=== PATIENT | male | born 2000 | race Caucasian/White ===

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

== ENCOUNTER → 2021-05-11 13:20 | Outpatient (CLI) | payer BC, OTHER, SELFPAY | PROVIDERS: PCP Family Medicine; Visit Provider Family Medicine | DX: R40.0 Somnolence (principal); G47.30 Sleep apnea, unspecified | CPT/HCPCS: G0399 ==

== ENCOUNTER 2023-10-01 14:25 | Emergency (ER) | payer BC, OTHER, SELFPAY ==
[2023-10-01 14:50] VITALS: BP 160/98; PULSE 99; RESP 18; TEMP 36.9; O2SAT 100; BMI 39.6
--- NOTE | 2023-10-01 15:21 | ED_ITS ---
Discharge Plan Disposition Patient Disposition: Home, Self-Care Condition: Good Prescriptions Prescriptions: New albuterol sulfate [Proventil HFA] 90 mcg/actuation HFA aerosol inhaler 1 - 2 puff inhalation Q6H PRN (Reason: shortness of breath or wheezing) Qty: 8.5 0RF No Action metoprolol tartrate 25 mg tablet 25 mg PO DAILY dextroamphetamine-amphetamine 20 mg tablet 20 mg PO DAILY Referrals Follow up/Referrals: Savage Henriquez [Primary Care Provider] - See instructions Sami Arizmendi [Referring] - See instructions Activity Restrictions/Add. Instructions Additional Instructions/Restrictions: Over the counter Benadryl may help with itching from reactions Follow up with your Family Doctor for further evaluation and if you have these symptoms again Follow up with Asthma and allergy for further testing Use inhaler as prescribed Straight to ER if any life threatening symptoms Make sure to take your Blood pressure Medication as prescribed Clinical Impressions Clinical Impression: Itching Instructions Patient Instructions: DI for General Allergic Reactions, Diphenhydramine Discharge ED Provider: Qing Orellana [facility] General Stated complaint: poss. allergic to paint Mode of Arrival: Ambulatory Source of Information: Patient Limitations: No Limitations Time Seen by Provider: 10/01/23 15:21 Description of Symptoms (Recalled from Triage Doc. 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 when he begin feeling flush, itchy all over, wheezy and skin looked red and itchy States that he was worried he may be having a reaction or something Stats that he went home took a shower and come in States that the itching and stuff has stopped now and he feels much better Related Data Home Medications Medication Instructions Recorded Confirmed dextroamphetamine-amphetamine 20 20 mg PO DAILY 05/25/21 05/25/21 mg tablet metoprolol tartrate 25 mg tablet 25 mg PO DAILY 05/25/21 05/25/21 Previous Rx's Medication Instructions Recorded albuterol sulfate 90 mcg/actuation 1 - 2 puff inhalation Q6H PRN 10/01/23 aerosol inhaler (Proventil HFA) shortness of breath or wheezing #8.5 grams Allergies Allergy/AdvReac Type Severity Reaction Status Date / Time prednisone Allergy Verified 05/25/21 13:42 Sulfa (Sulfonamide Allergy Verified 05/25/21 13:42 Antibiotics) Worker's Comp Is this a Worker's Comp case?: No PFSH [facility] Disclaimer: The information contained in this section may have been updated after the patient was seen, as this information can be updated by other users. Social History Smoking Status: Former smoker alcohol intake: current substance use type: denies use current occupational status: employed and other Travel in the last 8 weeks: None household members: family housing: house ROS Obtained: Yes All systems reviewed & no additional complaints except as documented and Yes Systems reviewed as appropriate & no additional complaints except as documented Constitutional Constitutional: Reports system reviewed and no additional complaints, except as documented and Reports as per HPI ENT Ears, Nose, Mouth, and Throat: Reports system reviewed and no additional complaints, except as documented and Reports as per HPI Cardiovascular Cardiovascular: Reports system reviewed and no additional complaints, except as documented and Reports as per HPI Respiratory Respiratory: Reports system reviewed and no additional complaints, except as documented, Reports as per HPI and Reports wheezing (earlier not now) Gastrointestinal Gastrointestingal: Reports system reviewed and no additional complaints, except as documented and as per HPI Musculoskeletal Musculoskeletal: Reports system reviewed and no additional complaints, except as documented and Reports as per HPI Integumentary/Breasts Skin/Breast: Reports system reviewed and no additional complaints, except as documented, Reports as per HPI, Reports pruritus and Reports other (felt flush) Allergic/Immunologic Allergic/Immunologic: Reports wheezing (earlier not now) Physical Exam General General appearance: alert and in no apparent distress ENT ENT exam: Present normal exam, normal oropharynx and mucous membranes moist Chest Chest inspection: Present normal inspection and symmetric chest wall rise Respiratory Respiratory exam: Present normal lung sounds bilaterally; Absent respiratory distress, wheezes, stridor or accessory muscle use Cardiovascular Cardiovascular exam: Present regular rate, normal rhythm and normal heart sounds Neurological Exam Neurological exam: Present alert, oriented X3 and normal gait Medical Decision Making Fernando Inquiry Pt receiving controlled substance: No Fernando was queried for this patient: No Vital Signs: 10/01/23 14:50 Temperature 98.4 F Temperature Source Oral Pulse Rate [Right Brachial] 99 H Respiratory Rate 18 Blood Pressure [Right Arm] 160/98 H Blood Pressure Mean [Right Arm] 118 Blood Pressure Source [Right Arm] Automatic Cuff Blood Pressure Position [Right Arm] Sitting 02 Sat by Pulse Oximetry 100 Oxygen Delivery Method Room Air Medical Decision Narrative: Patient states that he is feeling much better now no longer having itching, flushness, soa or wheezing states all the symptoms he was feeling earlier is now gone ready to go home
[2023-10-01 15:27] VITALS: BP 141/87
[2023-10-01 15:30] VITALS: BP 141/87; PULSE 99; RESP 18; TEMP 36.9; O2SAT 100
== END 2023-10-01 15:42 | disposition home or self-care (01) ==
PROVIDERS: Emergency Provider Nurse Practitioner; PCP Family Medicine
DX: L29.9 Pruritus, unspecified (principal); R06.2 Wheezing
CPT/HCPCS: 99204; 99212; G0463

== ENCOUNTER 2024-11-06 12:49 | Outpatient (CLI) | payer BC, OTHER, SELFPAY ==
--- NOTE | 2024-11-06 12:56 | XR_ITS ---
FINAL REPORT CLINICAL HISTORY: R knee pain; unable to fully straighten knee FINDINGS: Right knee Three views were obtained. There is no fracture or dislocation. The joint spaces appear normal. No soft tissue abnormality is identified. IMPRESSION: No acute process. Reviewed, Interpreted and Dictated by Silva Álvarez MD Transcribed by Emili Goldsmith Authenticated and [facility]
== END 2024-11-06 23:59 | disposition home or self-care (01) ==
LOC: RAD 12:50
PROVIDERS: PCP Family Medicine; Visit Provider Student in an Organized Health Care Education/Training Program
DX: M25.561 Pain in right knee (principal)
CPT/HCPCS: 73562